=== PATIENT | male | born 1955 | race Asian ===

== ENCOUNTER 2018-10-04 07:15 | Day surgery (SDC) | payer OTHER ==
[~2018-10-04] VITALS: Ht 180.3 cm; Wt 70.8 kg
[2018-10-04 07:48] VITALS: BP 137/84
[2018-10-04 13:32] VITALS: BP 130/79
== END 2018-10-04 10:30 | disposition home or self-care (01) ==
LOC: GI 07:15 → OR 08:00 → GI 10:30
PROVIDERS: Internal Medicine Gastroenterology
PROC: 0DB68ZX Excision of Stomach, Via Natural or Artificial Opening Endoscopic, Diagnostic (ICD-10-PCS; principal; 2018-10-04 08:00)
DX: R10.13 Epigastric pain (principal); Z79.82 Long term (current) use of aspirin; Z98.890 Other specified postprocedural states; Z79.899 Other long term (current) drug therapy; Z68.22 Body mass index [BMI] 22.0-22.9, adult
CPT/HCPCS: 43235; J1200; J1610; J2250; J2310; J3010; J3490